=== PATIENT | female | born 1995 | race Caucasian/White ===

== ENCOUNTER 2021-07-23 15:04 | Emergency (ER) | payer BC ==
[~2021-07-23] VITALS: Ht 170.2 cm; Wt 56.7 kg
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
[2021-07-23] MEDS ORDERED: LORA-259 PO (16:21)
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
[2021-07-23] MEDS ORDERED: LORAZEPAM 1 MG TABLET PO ONE (16:30)
[2021-07-23] MEDS ORDERED: LORAZEPAM 0.5 MG TABLET ONE (16:40)
[2021-07-23 17:03] VITALS: BP 109/77
== END 2021-07-23 17:03 | disposition home or self-care (01) ==
LOC: ER 15:06
DX: F32.9 Major depressive disorder, single episode, unspecified (principal); Z88.0 Allergy status to penicillin; Z88.1 Allergy status to other antibiotic agents; Z88.8 Allergy status to other drugs, medicaments and biological substances; Z79.899 Other long term (current) drug therapy